=== PATIENT | female | born 1980 | race American Indian/Alaskan Native ===

== ENCOUNTER 2017-03-23 22:33 | Emergency (ER) | payer SELFPAY ==
[2017-03-23] MEDS ORDERED: TYLENOL ONE (22:59)
[2017-03-23] MEDS ORDERED: TYLENOL PO ONE (23:05)
[2017-03-23 23:07] VITALS: BP 135/83
--- NOTE | 2017-03-24 01:07 | XRay Report ---
FINAL REPORT EXAM: XR KNEE 3V RT HISTORY: fall, pain, form signed, send for report COMPARISONS: None. FINDINGS: Four views right knee Lateralization of the patella on AP views. Tibial femoral alignment is within normal limits. No fracture or joint effusion identified. Mild tricompartmental osteoarthritis. IMPRESSION: Lateralization of the patella may be secondary to acute dislocation or chronic maltracking. No other potentially acute findings.
== END 2017-03-24 06:55 | disposition left against medical advice (07) ==
LOC: ED 22:33
DX: M79.604 Pain in right leg (principal); Z53.21 Procedure and treatment not carried out due to patient leaving prior to being seen by health care provider

== ENCOUNTER 2017-04-19 19:22 | Emergency (ER) | payer SELFPAY | END 2017-04-19 22:40 | disposition left against medical advice (07) | LOC: ED 19:22 | DX: M79.604 Pain in right leg (principal); Z53.21 Procedure and treatment not carried out due to patient leaving prior to being seen by health care provider ==

== ENCOUNTER 2018-02-02 15:53 | Emergency (ER) | payer OTHER ==
[2018-02-02 16:23] VITALS: BP 154/101
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
[2018-02-02] MEDS ORDERED: MOTRIN PO ONE (20:57)
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
== END 2018-02-02 21:00 | disposition left against medical advice (07) ==
LOC: ED 15:53
DX: M54.2 Cervicalgia (principal); M54.5 Low back pain; Z88.0 Allergy status to penicillin; Z98.51 Tubal ligation status; V49.3XXA Car occupant (driver) (passenger) injured in unspecified nontraffic accident, initial encounter; Y93.89 Activity, other specified; Y92.89 Other specified places as the place of occurrence of the external cause; Y99.8 Other external cause status
CPT/HCPCS: 72040; 72072; 72100; 99283